=== PATIENT | female | born 1955 | race Caucasian/White ===

== ENCOUNTER 2018-04-30 21:35 | Inpatient (IN) ==
[2018-04-30 23:30] LABS: Basophils % 0.3 % (0.0-0.8); Hematocrit 34.9 VOL% (35.7-47.0); Hemoglobin 11.2 GM/DL (12.0-16.0); Immature Granulocytes % 0.4 %; Immature Granulocytes Absolute 0.04 #; Lymphocytes # 1.1 10*3/uL (1.4-4.0); Lymphocytes % 11.3 % (21.3-54.2); Mean Corpuscular HGB Conc 32.1 GM/DL (32-36); Mean Corpuscular Hemoglobin 32 PG (27-34); Monocytes # 1.2 10*3/uL (0.11-0.8); Neutrophils # 7.4 10*3/uL (1.4-7.4); Platelet Count 224 T/CUMM (130-400); Red Blood Count 3.56 MC/CUMM (3.8-5.5); Red Cell Distribution Width 13.5 % (9.3-17.3); White Blood Count 9.8 T/CUMM (4-12)
[2018-04-30 23:39] LABS: Alanine Aminotransferase 28 U/L (13-56); Albumin 3.1 G/DL (3.4-5.0); Alkaline Phosphatase 65 U/L (45-117); Aspartate Amino Transferase 27 U/L (0-37); Bilirubin,Total < 0.39 MG/DL (0.2-1.0); Blood Urea Nitrogen 25 MG/DL (7-18); Calcium 8.8 MG/DL (8.5-10.1); Glucose 122 MG/DL (74-106); Osmolality,Calculated 285.3 MOS/KG (273-304); Potassium 4.4 MMOL/L (3.5-5.1); Sodium 141 MMOL/L (136-145); Total Protein 6.7 G/DL (6.4-8.3)
[2018-04-30 23:42] LABS: INR 0.9; Partial Thromboplastin Time 27.6 SECS (0-40)
[2018-05-01] MEDS ORDERED: ONDANSETRON 4 MG/2 ML VIAL IV PRN ×2 (00:12→11:15)
[2018-05-01] MEDS ORDERED: MORPHINE 4 MG/1 ML VIAL IV PRN ×3 (00:12→10:59)
[2018-05-01] MEDS: PRAVASTATIN 20 MG TABLET PO SCH ×2 (03:46→20:15)
[2018-05-01] MEDS: SODIUM CHLORIDE 0.9% 1,000 ML IV SCH ×2 (04:00→20:15)
[2018-05-01] MEDS ORDERED: HYDROCORTISONE 100 MG VIAL IV ONE (05:00)
[2018-05-01] MEDS ORDERED: Mirabegron [Myrbetriq] 50 MG PO SCH (09:00)
[2018-05-01 09:06] LABS: Basophils % 0.2 % (0.0-0.8); Eosinophils % 0.1 % (0.00-10.9); Hematocrit 32.3 VOL% (35.7-47.0); Hemoglobin 10.2 GM/DL (12.0-16.0); Immature Granulocytes % 0.7 %; Immature Granulocytes Absolute 0.06 #; Lymphocytes # 1.1 10*3/uL (1.4-4.0); Mean Corpuscular HGB Conc 31.6 GM/DL (32-36); Mean Corpuscular Hemoglobin 31 PG (27-34); Mean Corpuscular Volume 98.5 FL (87-102); Mean Platelet Volume 10.2 FL (9.6-12.0); Monocytes # 0.8 10*3/uL (0.11-0.8); Monocytes % 8.6 % (1.7-12.7); Neutrophils % 78.4 % (38.7-73.9); Platelet Count 208 T/CUMM (130-400); Red Blood Count 3.28 MC/CUMM (3.8-5.5); Red Cell Distribution Width 13.7 % (9.3-17.3); White Blood Count 8.9 T/CUMM (4-12)
[2018-05-01 09:13] LABS: INR 0.9; Partial Thromboplastin Time 27.3 SECS (0-40)
[2018-05-01] MEDS ORDERED: ceFAZolin 2,000 MG in PREMIX 1 EACH IV ONE (09:14)
[2018-05-01 09:43] LABS: Calcium 8.4 MG/DL (8.5-10.1); Osmolality,Calculated 285.3 MOS/KG (273-304); Potassium 4.3 MMOL/L (3.5-5.1)
[2018-05-01] MEDS ORDERED: HYDROCORTISONE 100 MG VIAL ONE (10:28)
[2018-05-01] MEDS ORDERED: BUPIVACAINE SPINAL 0.75% 2 ML AMP SPINAL ONE (10:30)
[2018-05-01] MEDS ORDERED: LIDOCAINE 1% 5 ML VIAL ONE (10:30)
[2018-05-01] MEDS ORDERED: PROPOFOL 200 MG/20 ML VIAL IV ONE (10:30)
[2018-05-01] MEDS ORDERED: LACTATED RINGERS 1,000 ML IV ONE (10:31)
[2018-05-01] MEDS ORDERED: SODIUM CHLORIDE 0.9% 250 ML IV ONE (10:31)
[2018-05-01] MEDS ORDERED: MORPHINE 10 MG/10 ML VIAL ONE (10:36)
[2018-05-01] MEDS ORDERED: ceFAZolin 1,000 MG VIAL ONE ×2 (10:38→11:01)
[2018-05-01] MEDS ORDERED: BISACODYL 10 MG SUPP RECTAL PRN (10:39)
[2018-05-01] MEDS ORDERED: MAGNESIUM HYDROXIDE SUSP 30 ML UDCUP PO PRN (10:39)
[2018-05-01] MEDS ORDERED: PROMETHAZINE 25 MG/1 ML VIAL IM PRN (10:39)
[2018-05-01] MEDS ORDERED: LACTULOSE 20 GM/30 ML UDCUP PO PRN (10:39)
[2018-05-01] MEDS ORDERED: MORPHINE 10 MG/1 ML VIAL IV PRN (11:15)
[2018-05-01] MEDS ORDERED: PHENYLEPHRINE 1 MG/10 ML SYRINGE IV ONE (12:06)
[2018-05-01] MEDS: BACLOFEN 10 MG TABLET PO SCH ×4 (13:22→20:15)
[2018-05-01] MEDS: HYDROCORTISONE 100 MG VIAL IV SCH ×2 (13:42→20:16)
[2018-05-01] MEDS: predniSONE 10 MG TABLET PO SCH (14:00)
[2018-05-01] MEDS: OMEGA 3 ACID ETHYL ESTERS 1 GM CAPSULE PO SCH (15:01)
[2018-05-01] MEDS: SERTRALINE 50 MG TABLET PO SCH (15:01)
[2018-05-01] MEDS: GABAPENTIN 300 MG CAPSULE PO SCH ×3 (15:02→20:15)
[2018-05-01] MEDS: MULTIVITAMIN (CENTRUM) TABLET PO SCH (15:02)
[2018-05-01] MEDS: ceFAZolin 1,000 MG in SYRINGE 1 EACH IV SCH (17:37)
[2018-05-01] MEDS: BACLOFEN 20 MG TABLET PO SCH (20:15)
[2018-05-02] MEDS: ceFAZolin 1,000 MG in SYRINGE 1 EACH IV SCH ×2 (01:25→11:46)
[2018-05-02 04:12] LABS: Basophils % 0.1 % (0.0-0.8); Hematocrit 24.1 VOL% (35.7-47.0); Hemoglobin 7.5 GM/DL (12.0-16.0); Immature Granulocytes % 0.7 %; Immature Granulocytes Absolute 0.05 #; Lymphocytes % 12.8 % (21.3-54.2); Mean Corpuscular HGB Conc 31.1 GM/DL (32-36); Mean Corpuscular Hemoglobin 31 PG (27-34); Mean Corpuscular Volume 100.4 FL (87-102); Monocytes # 1.2 10*3/uL (0.11-0.8); Monocytes % 15.7 % (1.7-12.7); Neutrophils # 5.3 10*3/uL (1.4-7.4); Neutrophils % 70.7 % (38.7-73.9); Platelet Count 169 T/CUMM (130-400); Red Cell Distribution Width 13.5 % (9.3-17.3); White Blood Count 7.5 T/CUMM (4-12)
[2018-05-02 04:59] LABS: Band Neutrophils 6 % (0-10); Lymphocytes 14 % (20-55); Macrocytosis 3+; Platelet Estimate Normal; Segmented Neutrophils 71 % (50-85); Total Cells Counted 100
[2018-05-02] MEDS: HYDROCORTISONE 100 MG VIAL IV SCH ×2 (06:32→13:01)
[2018-05-02] MEDS ORDERED: SODIUM CHLORIDE 0.9% 1,000 ML IV PRN (09:21)
[2018-05-02] MEDS: BACLOFEN 10 MG TABLET PO SCH ×4 (11:48→20:30)
[2018-05-02] MEDS: OMEGA 3 ACID ETHYL ESTERS 1 GM CAPSULE PO SCH (11:48)
[2018-05-02] MEDS: GABAPENTIN 300 MG CAPSULE PO SCH ×3 (11:48→20:29)
[2018-05-02] MEDS: MULTIVITAMIN (CENTRUM) TABLET PO SCH (11:48)
[2018-05-02] MEDS: predniSONE 10 MG TABLET PO SCH (11:48)
[2018-05-02] MEDS: SERTRALINE 50 MG TABLET PO SCH (11:49)
[2018-05-02] MEDS: ENOXAPARIN 40 MG/0.4 ML SYRINGE SUBCUT SCH (11:54)
[2018-05-02] MEDS: BACLOFEN 20 MG TABLET PO SCH (20:29)
[2018-05-02] MEDS: PRAVASTATIN 20 MG TABLET PO SCH (20:29)
[2018-05-02] MEDS: SODIUM CHLORIDE 0.9% 1,000 ML IV SCH (20:29)
[2018-05-02 23:21] LABS: Hematocrit 30.4 VOL% (35.7-47.0); Hemoglobin 10.4 GM/DL (12.0-16.0)
[2018-05-03 05:43] LABS: Basophils % 0.4 % (0.0-0.8); Eosinophils % 0.4 % (0.00-10.9); Hematocrit 30.3 VOL% (35.7-47.0); Hemoglobin 10.2 GM/DL (12.0-16.0); Immature Granulocytes % 1.3 %; Immature Granulocytes Absolute 0.11 #; Lymphocytes % 23.9 % (21.3-54.2); Mean Corpuscular HGB Conc 33.7 GM/DL (32-36); Mean Corpuscular Hemoglobin 31 PG (27-34); Mean Corpuscular Volume 93.2 FL (87-102); Mean Platelet Volume 9.9 FL (9.6-12.0); Monocytes # 1.3 10*3/uL (0.11-0.8); Monocytes % 15.1 % (1.7-12.7); Neutrophils # 4.9 10*3/uL (1.4-7.4); Neutrophils % 58.9 % (38.7-73.9); Platelet Count 170 T/CUMM (130-400); Red Blood Count 3.25 MC/CUMM (3.8-5.5); Red Cell Distribution Width 14.7 % (9.3-17.3); White Blood Count 8.3 T/CUMM (4-12)
[2018-05-03 06:19] LABS: Calcium 7.6 MG/DL (8.5-10.1); Osmolality,Calculated 289.6 MOS/KG (273-304); Potassium 3.1 MMOL/L (3.5-5.1)
[2018-05-03] MEDS ORDERED: POTASSIUM CHLORIDE 20 MEQ TABLET PO ONE (07:35)
[2018-05-03] MEDS: SERTRALINE 50 MG TABLET PO SCH (09:44)
[2018-05-03] MEDS: MULTIVITAMIN (CENTRUM) TABLET PO SCH (09:44)
[2018-05-03] MEDS: BACLOFEN 10 MG TABLET PO SCH ×4 (09:44→21:10)
[2018-05-03] MEDS: predniSONE 10 MG TABLET PO SCH (09:44)
[2018-05-03] MEDS: GABAPENTIN 300 MG CAPSULE PO SCH ×3 (09:45→21:10)
[2018-05-03] MEDS: ENOXAPARIN 40 MG/0.4 ML SYRINGE SUBCUT SCH (09:45)
[2018-05-03] MEDS: OMEGA 3 ACID ETHYL ESTERS 1 GM CAPSULE PO SCH (09:45)
[2018-05-03] MEDS: Mirabegron [Myrbetriq] 50 MG PO SCH (11:06)
[2018-05-03] MEDS: PRAVASTATIN 20 MG TABLET PO SCH (21:10)
[2018-05-03] MEDS: BACLOFEN 20 MG TABLET PO SCH (21:10)
[2018-05-03] MEDS: FERROUS SULFATE 325 MG TABLET PO SCH (21:10)
[2018-05-04 06:41] LABS: Basophils # 0.1 10*3/uL (0.0-0.2); Basophils % 0.7 % (0.0-0.8); Eosinophils # 0.2 10*3/uL (0.0-0.87); Eosinophils % 2.2 % (0.00-10.9); Hematocrit 29.7 VOL% (35.7-47.0); Hemoglobin 9.8 GM/DL (12.0-16.0); Immature Granulocytes % 1.1 %; Immature Granulocytes Absolute 0.08 #; Lymphocytes # 1.9 10*3/uL (1.4-4.0); Lymphocytes % 26.6 % (21.3-54.2); Mean Corpuscular Hemoglobin 31 PG (27-34); Mean Corpuscular Volume 95.2 FL (87-102); Mean Platelet Volume 9.8 FL (9.6-12.0); Monocytes # 0.9 10*3/uL (0.11-0.8); Monocytes % 12.6 % (1.7-12.7); Neutrophils # 4.1 10*3/uL (1.4-7.4); Neutrophils % 56.8 % (38.7-73.9); Platelet Count 176 T/CUMM (130-400); Red Blood Count 3.12 MC/CUMM (3.8-5.5); Red Cell Distribution Width 14.8 % (9.3-17.3); White Blood Count 7.1 T/CUMM (4-12)
[2018-05-04 06:57] LABS: Calcium 7.6 MG/DL (8.5-10.1); Osmolality,Calculated 284.7 MOS/KG (273-304); Potassium 3.1 MMOL/L (3.5-5.1)
[2018-05-04] MEDS: OMEGA 3 ACID ETHYL ESTERS 1 GM CAPSULE PO SCH (08:25)
[2018-05-04] MEDS: GABAPENTIN 300 MG CAPSULE PO SCH (08:25)
[2018-05-04] MEDS: BACLOFEN 10 MG TABLET PO SCH ×2 (08:25→13:01)
[2018-05-04] MEDS: SERTRALINE 50 MG TABLET PO SCH (08:25)
[2018-05-04] MEDS: FERROUS SULFATE 325 MG TABLET PO SCH (08:25)
[2018-05-04] MEDS: MULTIVITAMIN (CENTRUM) TABLET PO SCH (08:25)
[2018-05-04] MEDS: predniSONE 10 MG TABLET PO SCH (08:25)
[2018-05-04] MEDS: Mirabegron [Myrbetriq] 50 MG PO SCH (08:25)
[2018-05-04] MEDS: ENOXAPARIN 40 MG/0.4 ML SYRINGE SUBCUT SCH (08:27)
[2018-05-04] MEDS ORDERED: POTASSIUM CHLORIDE 20 MEQ TABLET PO ONE (09:02)
[2018-05-04 11:19] VITALS: BP 94/50
[2018-05-12] MEDS ORDERED: CYANOCOBALAMIN 1000 MCG/1 ML VIAL IM SCH (09:00)
== END 2018-05-04 13:03 | disposition home health service (06) | DRG 481 ==
LOC: EDBD → EDUNIT# → N.ED 21:35 → N.EDINP 05-01 00:07 → N.3E 05-01 01:26

== ENCOUNTER 2018-12-24 02:24 | Inpatient (IN) ==
[2018-12-24] MEDS ORDERED: ONDANSETRON 4 MG/2 ML VIAL IV PRN (02:59)
[2018-12-24] MEDS: DEXTROSE 5% NACL 0.45% 1,000 ML IV SCH ×2 (03:15→14:51)
[2018-12-24 03:43] LABS: Basophils % 0.4 % (0.0-0.8); Eosinophils # 0.1 10*3/uL (0.0-0.87); Hematocrit 33.8 VOL% (35.7-47.0); Hemoglobin 10.4 GM/DL (12.0-16.0); Immature Granulocytes % 0.7 %; Immature Granulocytes Absolute 0.06 #; Lymphocytes # 2.2 10*3/uL (1.4-4.0); Lymphocytes % 23.6 % (21.3-54.2); Mean Corpuscular HGB Conc 30.8 GM/DL (32-36); Mean Corpuscular Hemoglobin 31 PG (27-34); Mean Corpuscular Volume 101.8 FL (87-102); Mean Platelet Volume 9.9 FL (9.6-12.0); Monocytes # 1.2 10*3/uL (0.11-0.8); Monocytes % 13.2 % (1.7-12.7); Neutrophils # 5.6 10*3/uL (1.4-7.4); Neutrophils % 61.1 % (38.7-73.9); Platelet Count 209 T/CUMM (130-400); Red Blood Count 3.32 MC/CUMM (3.8-5.5); White Blood Count 9.2 T/CUMM (4-12)
[2018-12-24 04:00] LABS: Alanine Aminotransferase 20 U/L (13-56); Albumin 3.1 G/DL (3.4-5.0); Alkaline Phosphatase 58 U/L (45-117); Aspartate Amino Transferase 16 U/L (0-37); Bilirubin,Total < 0.39 MG/DL (0.2-1.0); Blood Urea Nitrogen 29 MG/DL (7-18); Calcium 8.2 MG/DL (8.5-10.1); Glucose 103 MG/DL (74-106); Potassium 4.2 MMOL/L (3.5-5.1); Sodium 143 MMOL/L (136-145); Total Protein 6.1 G/DL (6.4-8.3)
[2018-12-24] MEDS: predniSONE 10 MG TABLET PO SCH (10:46)
[2018-12-24] MEDS: SERTRALINE 100 MG TABLET PO SCH (10:46)
[2018-12-24] MEDS: busPIRone 5 MG TABLET PO SCH ×2 (10:46→22:03)
[2018-12-24] MEDS: FERROUS SULFATE 325 MG TABLET PO SCH ×2 (10:47→22:02)
[2018-12-24] MEDS: BACLOFEN 10 MG TABLET PO SCH ×3 (12:54→22:04)
[2018-12-24] MEDS: GABAPENTIN 300 MG CAPSULE PO SCH ×2 (16:18→22:04)
[2018-12-24] MEDS: BACLOFEN 20 MG TABLET PO SCH (22:02)
[2018-12-24] MEDS: CALCIUM (CARBONATE)/VITAMIN D 600 MG-400 UNIT TABLET PO SCH (22:03)
[2018-12-25] MEDS: DEXTROSE 5% NACL 0.45% 1,000 ML IV SCH ×2 (01:14→12:54)
[2018-12-25] MEDS: MORPHINE 4 MG/1 ML VIAL IV PRN (05:50)
[2018-12-25] MEDS ORDERED: PANTOPRAZOLE 40 MG TABLET PO ONE (07:00)
[2018-12-25] MEDS ORDERED: DIAZEPAM 5 MG TABLET PO ONE (07:00)
[2018-12-25 07:34] LABS: Calcium 7.6 MG/DL (8.5-10.1); Osmolality,Calculated 283.1 MOS/KG (273-304); Potassium 3.4 MMOL/L (3.5-5.1)
[2018-12-25] MEDS: BACLOFEN 10 MG TABLET PO SCH ×4 (09:00→21:17)
[2018-12-25] MEDS: GABAPENTIN 300 MG CAPSULE PO SCH ×3 (09:00→21:16)
[2018-12-25] MEDS ORDERED: ceFAZolin 1,000 MG VIAL ONE (09:24)
[2018-12-25 09:26] LABS: Basophils % 0.4 % (0.0-0.8); Eosinophils # 0.1 10*3/uL (0.0-0.87); Eosinophils % 1.4 % (0.00-10.9); Hematocrit 26.4 VOL% (35.7-47.0); Immature Granulocytes % 0.5 %; Immature Granulocytes Absolute 0.04 #; Lymphocytes # 1.7 10*3/uL (1.4-4.0); Lymphocytes % 23.3 % (21.3-54.2); Mean Corpuscular HGB Conc 30.3 GM/DL (32-36); Mean Corpuscular Hemoglobin 31 PG (27-34); Mean Corpuscular Volume 103.5 FL (87-102); Mean Platelet Volume 10.4 FL (9.6-12.0); Monocytes # 1.3 10*3/uL (0.11-0.8); Monocytes % 17.3 % (1.7-12.7); Neutrophils # 4.2 10*3/uL (1.4-7.4); Neutrophils % 57.1 % (38.7-73.9); Platelet Count 146 T/CUMM (130-400); Red Blood Count 2.55 MC/CUMM (3.8-5.5); Red Cell Distribution Width 13.2 % (9.3-17.3); White Blood Count 7.3 T/CUMM (4-12)
[2018-12-25] MEDS ORDERED: ONDANSETRON 4 MG/2 ML VIAL IV PRN (11:03)
[2018-12-25] MEDS ORDERED: MEPERIDINE 25 MG/1 ML VIAL IV PRN (11:03)
[2018-12-25] MEDS ORDERED: PROMETHAZINE INJ 25 MG in SODIUM CHLORIDE 0.9% 50 ML IV PRN (11:03)
[2018-12-25] MEDS ORDERED: HYDROmorphone 2 MG/1 ML VIAL IV PRN (11:03)
[2018-12-25] MEDS ORDERED: PROPOFOL 200 MG/20 ML VIAL IV ONE (12:11)
[2018-12-25] MEDS ORDERED: PHENYLEPHRINE 1 MG/10 ML SYRINGE IV ONE (12:11)
[2018-12-25] MEDS ORDERED: fentaNYL 100 MCG/2 ML VIAL ONE (12:11)
[2018-12-25] MEDS ORDERED: MIDAZOLAM 2 MG/2 ML VIAL ONE (12:11)
[2018-12-25] MEDS ORDERED: HYDROCORTISONE 100 MG VIAL IV STA (12:37)
[2018-12-25 13:35] LABS: Eosinophils 2 % (0-10); Lymphocytes 31 % (20-55); Platelet Estimate Adequate; Polychromasia Slight; Segmented Neutrophils 59 % (50-85); Total Cells Counted 100
[2018-12-25] MEDS: busPIRone 5 MG TABLET PO SCH ×3 (15:16→21:18)
[2018-12-25] MEDS: CALCIUM (CARBONATE)/VITAMIN D 600 MG-400 UNIT TABLET PO SCH ×2 (15:16→21:16)
[2018-12-25] MEDS: FERROUS SULFATE 325 MG TABLET PO SCH ×2 (15:17→21:16)
[2018-12-25] MEDS: SERTRALINE 100 MG TABLET PO SCH (15:17)
[2018-12-25] MEDS: predniSONE 10 MG TABLET PO SCH (15:18)
[2018-12-25] MEDS ORDERED: ceFAZolin 1,000 MG in SYRINGE 1 EACH IV SCH (18:00)
[2018-12-25] MEDS: ENOXAPARIN 40 MG/0.4 ML SYRINGE SUBCUT SCH (21:15)
[2018-12-25] MEDS: BACLOFEN 20 MG TABLET PO SCH (21:16)
[2018-12-25] MEDS ORDERED: POTASSIUM CHLORIDE 20 MEQ TABLET PO PRN (22:13)
[2018-12-25] MEDS ORDERED: SODIUM CHLORIDE 0.9% 1,000 ML IV PRN (22:14)
[2018-12-25] MEDS: SIMVASTATIN 10 MG TABLET PO SCH (22:57)
[2018-12-26] MEDS: ACETAMINOPHEN 500 MG TABLET PO PRN ×2 (00:09→15:32)
[2018-12-26] MEDS: DEXTROSE 5% NACL 0.45% 1,000 ML IV SCH ×3 (00:11→14:20)
[2018-12-26] MEDS: MORPHINE 4 MG/1 ML VIAL IV PRN (06:25)
[2018-12-26 09:49] LABS: Basophils % 0.3 % (0.0-0.8); Eosinophils # 0.1 10*3/uL (0.0-0.87); Eosinophils % 1.4 % (0.00-10.9); Hematocrit 28.2 VOL% (35.7-47.0); Hemoglobin 8.8 GM/DL (12.0-16.0); Immature Granulocytes % 0.6 %; Immature Granulocytes Absolute 0.05 #; Lymphocytes # 1.8 10*3/uL (1.4-4.0); Lymphocytes % 22.9 % (21.3-54.2); Mean Corpuscular HGB Conc 31.2 GM/DL (32-36); Mean Corpuscular Hemoglobin 29 PG (27-34); Mean Corpuscular Volume 93.7 FL (87-102); Mean Platelet Volume 9.6 FL (9.6-12.0); Monocytes # 1.1 10*3/uL (0.11-0.8); Monocytes % 13.7 % (1.7-12.7); Neutrophils # 4.9 10*3/uL (1.4-7.4); Neutrophils % 61.1 % (38.7-73.9); Platelet Count 127 T/CUMM (130-400); Red Blood Count 3.01 MC/CUMM (3.8-5.5); Red Cell Distribution Width 18.6 % (9.3-17.3)
[2018-12-26] MEDS: FERROUS SULFATE 325 MG TABLET PO SCH ×2 (09:54→21:13)
[2018-12-26] MEDS: CALCIUM (CARBONATE)/VITAMIN D 600 MG-400 UNIT TABLET PO SCH ×2 (09:54→21:13)
[2018-12-26] MEDS: BACLOFEN 10 MG TABLET PO SCH ×4 (09:54→21:12)
[2018-12-26] MEDS: GABAPENTIN 300 MG CAPSULE PO SCH ×3 (09:55→21:13)
[2018-12-26] MEDS: predniSONE 10 MG TABLET PO SCH (09:55)
[2018-12-26] MEDS: CHOLECALCIFEROL 1,000 UNIT TABLET PO SCH (09:55)
[2018-12-26] MEDS: SERTRALINE 100 MG TABLET PO SCH (09:55)
[2018-12-26] MEDS: busPIRone 5 MG TABLET PO SCH ×2 (10:23→21:19)
[2018-12-26] MEDS: ALBUTEROL/IPRATROPIUM 3 ML NEB RESP TX SCH ×2 (13:58→19:49)
[2018-12-26] MEDS: ZINC OXIDE PASTE 113 GM TUBE TOP SCH ×2 (14:25→21:10)
[2018-12-26] MEDS: ASPIRIN EC 81 MG TABLET PO SCH (15:28)
[2018-12-26 18:39] LABS: Apearance,Urine CLEAR (Clear); Bilirubin,Urine Negative (Negative); Blood, Urine Negative (Negative); Glucose,Urine (UA) 50 mg/dL (Negative); Ketones,Urine Negative (Negative); Nitrite,Urine Negative (Negative); Protein,Urine Negative; Urine Color Straw (Yellow); Urine Specific Gravity 1.006 (1.001-1.035); Urine Urobilinogen < 2.0 EU/DL (0.2-1.0)
[2018-12-26 18:53] LABS: Bacteria,Urine Few /HPF (Few); RBC,Urine F /HPF (0-4); Squamous Epithelial Cell,Urine Few /HPF (0-10); WBC,Urine 15 /HPF (0-6)
[2018-12-26] MEDS: BACLOFEN 20 MG TABLET PO SCH (21:12)
[2018-12-26] MEDS: SIMVASTATIN 10 MG TABLET PO SCH (21:13)
[2018-12-26] MEDS: ENOXAPARIN 40 MG/0.4 ML SYRINGE SUBCUT SCH (21:14)
[2018-12-27] MEDS: ALBUTEROL/IPRATROPIUM 3 ML NEB RESP TX SCH ×2 (00:31→07:14)
[2018-12-27] MEDS: DEXTROSE 5% NACL 0.45% 1,000 ML IV SCH ×2 (01:43→11:00)
[2018-12-27 05:52] LABS: Basophils % 0.4 % (0.0-0.8); Eosinophils # 0.1 10*3/uL (0.0-0.87); Eosinophils % 1.6 % (0.00-10.9); Immature Granulocytes % 0.6 %; Immature Granulocytes Absolute 0.05 #; Lymphocytes # 1.9 10*3/uL (1.4-4.0); Lymphocytes % 23.2 % (21.3-54.2); Mean Corpuscular Hemoglobin 29 PG (27-34); Mean Corpuscular Volume 93.9 FL (87-102); Mean Platelet Volume 9.9 FL (9.6-12.0); Neutrophils # 4.9 10*3/uL (1.4-7.4); Neutrophils % 61.2 % (38.7-73.9); Platelet Count 151 T/CUMM (130-400); Red Blood Count 3.09 MC/CUMM (3.8-5.5); Red Cell Distribution Width 18.6 % (9.3-17.3)
[2018-12-27 06:07] LABS: Calcium 8.3 MG/DL (8.5-10.1); Osmolality,Calculated 280.1 MOS/KG (273-304); Potassium 3.2 MMOL/L (3.5-5.1)
[2018-12-27] MEDS: ZINC OXIDE PASTE 113 GM TUBE TOP SCH ×2 (07:15→08:38)
[2018-12-27] MEDS: CALCIUM (CARBONATE)/VITAMIN D 600 MG-400 UNIT TABLET PO SCH (08:36)
[2018-12-27] MEDS: BACLOFEN 10 MG TABLET PO SCH (08:36)
[2018-12-27] MEDS: ASPIRIN EC 81 MG TABLET PO SCH (08:36)
[2018-12-27] MEDS: FERROUS SULFATE 325 MG TABLET PO SCH (08:36)
[2018-12-27] MEDS: predniSONE 10 MG TABLET PO SCH (08:37)
[2018-12-27] MEDS: SERTRALINE 100 MG TABLET PO SCH (08:37)
[2018-12-27] MEDS: CHOLECALCIFEROL 1,000 UNIT TABLET PO SCH (08:37)
[2018-12-27] MEDS: GABAPENTIN 300 MG CAPSULE PO SCH (08:37)
[2018-12-27] MEDS: busPIRone 5 MG TABLET PO SCH (08:37)
[2018-12-27 11:33] VITALS: BP 138/69
== END 2018-12-27 13:15 | disposition home health service (06) | DRG 481 ==
LOC: EDUNIT# → N.ED 02:24 → N.EDINP 02:59 → N.3E 03:59
PROVIDERS: ADMIT Orthopaedic Surgery; ATTEND Orthopaedic Surgery

== ENCOUNTER 2018-12-28 16:37 | Inpatient (IN) ==
[2018-12-28] MEDS ORDERED: ONDANSETRON 4 MG/2 ML VIAL IV STA (17:02)
[2018-12-28] MEDS ORDERED: ALBUTEROL/IPRATROPIUM 3 ML NEB RESP TX STA (17:02)
[2018-12-28 17:45] LABS: Basophils % 0.2 % (0.0-0.8); Eosinophils % 0.1 % (0.00-10.9); Hematocrit 31.1 VOL% (35.7-47.0); Hemoglobin 9.8 GM/DL (12.0-16.0); Immature Granulocytes % 1.1 %; Lymphocytes # 0.7 10*3/uL (1.4-4.0); Lymphocytes % 7.4 % (21.3-54.2); Mean Corpuscular HGB Conc 31.5 GM/DL (32-36); Mean Corpuscular Hemoglobin 30 PG (27-34); Mean Corpuscular Volume 93.7 FL (87-102); Mean Platelet Volume 9.5 FL (9.6-12.0); Monocytes # 0.9 10*3/uL (0.11-0.8); Monocytes % 9.7 % (1.7-12.7); NRBC # 0.02 10*3/uL; Neutrophils # 7.8 10*3/uL (1.4-7.4); Neutrophils % 81.5 % (38.7-73.9); Platelet Count 224 T/CUMM (130-400); Red Blood Count 3.32 MC/CUMM (3.8-5.5); Red Cell Distribution Width 17.5 % (9.3-17.3); White Blood Count 9.5 T/CUMM (4-12)
[2018-12-28 18:02] LABS: INR 0.9; Partial Thromboplastin Time 28.2 SECS (0-40)
[2018-12-28 18:13] LABS: Alanine Aminotransferase 21 U/L (13-56); Albumin 2.4 G/DL (3.4-5.0); Alkaline Phosphatase 73 U/L (45-117); Aspartate Amino Transferase 75 U/L (0-37); Blood Urea Nitrogen 11 MG/DL (7-18); Calcium 8.1 MG/DL (8.5-10.1); Glucose 102 MG/DL (74-106); Osmolality,Calculated 279.3 MOS/KG (273-304); Potassium 3.7 MMOL/L (3.5-5.1); Sodium 141 MMOL/L (136-145); Total Protein 6.3 G/DL (6.4-8.3)
[2018-12-28 18:14] LABS: Troponin I 0.164 NG/ML (0.00-0.045)
[2018-12-28 18:19] LABS: Apearance,Urine CLEAR (Clear); Bilirubin,Urine Negative (Negative); Blood, Urine Negative (Negative); Glucose,Urine (UA) Negative (Negative); Ketones,Urine 5 mg/dL (Negative); Mucus,Urine Occasional /LPF (Occasional); Nitrite,Urine Negative (Negative); Protein,Urine Negative; RBC,Urine 4 /HPF (0-4); Squamous Epithelial Cell,Urine Occasional /HPF (0-10); Urine Color Yellow (Yellow); Urine Specific Gravity 1.023 (1.001-1.035); Urine Urobilinogen < 2.0 EU/DL (0.2-1.0); WBC,Urine 32 /HPF (0-6)
[2018-12-28] MEDS ORDERED: ENOXAPARIN 80 MG/0.8 ML SYRINGE SUBCUT STA (18:52)
[2018-12-28] MEDS ORDERED: ONDANSETRON 4 MG/2 ML VIAL IV PRN (19:23)
[2018-12-28] MEDS ORDERED: hydrALAZINE 20 MG/1 ML VIAL IV PRN (20:21)
[2018-12-28] MEDS: LEVOFLOXACIN INJ 750 MG in PREMIX 1 EACH IV SCH (20:28)
[2018-12-28] MEDS ORDERED: BACLOFEN 20 MG TABLET PO SCH (21:00)
[2018-12-28] MEDS: POTASSIUM CHLORIDE 8 MEQ CAPSULE PO SCH (21:18)
[2018-12-28] MEDS: SIMVASTATIN 10 MG TABLET PO SCH (21:19)
[2018-12-28] MEDS: busPIRone 5 MG TABLET PO SCH (21:20)
[2018-12-29] MEDS ORDERED: BACLOFEN 10 MG TABLET PO ONE (00:12)
[2018-12-29] MEDS: ALBUTEROL/IPRATROPIUM 3 ML NEB RESP TX SCH ×4 (00:19→19:54)
[2018-12-29 04:46] LABS: Basophils % 0.2 % (0.0-0.8); Eosinophils # 0.1 10*3/uL (0.0-0.87); Eosinophils % 1.2 % (0.00-10.9); Hematocrit 27.7 VOL% (35.7-47.0); Hemoglobin 8.5 GM/DL (12.0-16.0); Immature Granulocytes % 1.1 %; Immature Granulocytes Absolute 0.09 #; Lymphocytes # 1.4 10*3/uL (1.4-4.0); Mean Corpuscular HGB Conc 30.7 GM/DL (32-36); Mean Corpuscular Hemoglobin 29 PG (27-34); Mean Corpuscular Volume 94.9 FL (87-102); Mean Platelet Volume 9.7 FL (9.6-12.0); Monocytes # 0.9 10*3/uL (0.11-0.8); Monocytes % 11.2 % (1.7-12.7); NRBC # 0.02 10*3/uL; Neutrophils # 5.7 10*3/uL (1.4-7.4); Neutrophils % 69.3 % (38.7-73.9); Platelet Count 213 T/CUMM (130-400); Red Blood Count 2.92 MC/CUMM (3.8-5.5); Red Cell Distribution Width 17.3 % (9.3-17.3); White Blood Count 8.2 T/CUMM (4-12)
[2018-12-29 05:00] LABS: Calcium 7.7 MG/DL (8.5-10.1); Osmolality,Calculated 280.1 MOS/KG (273-304); Potassium 3.8 MMOL/L (3.5-5.1)
[2018-12-29 05:04] LABS: Albumin 2.2 G/DL (3.4-5.0); Bilirubin,Direct 0.18 MG/DL (0.0-0.20); Bilirubin,Indirect 0.7 MG/DL (0.0-1.0); Bilirubin,Total 0.9 MG/DL (0.2-1.0); Total Protein 5.5 G/DL (6.4-8.3)
[2018-12-29 05:06] LABS: CKMB % 0.7 %
[2018-12-29 05:07] LABS: Troponin I 0.086 NG/ML (0.00-0.045)
[2018-12-29] MEDS: METOPROLOL TARTRATE 5 MG/5 ML VIAL IV SCH ×4 (06:16→18:59)
[2018-12-29] MEDS: ENOXAPARIN 80 MG/0.8 ML SYRINGE SUBCUT SCH ×2 (06:25→18:40)
[2018-12-29] MEDS ORDERED: BACLOFEN 10 MG TABLET PO SCH (09:00)
[2018-12-29] MEDS: SERTRALINE 100 MG TABLET PO SCH (09:59)
[2018-12-29] MEDS: GABAPENTIN 300 MG CAPSULE PO SCH ×3 (09:59→20:40)
[2018-12-29] MEDS: FERROUS SULFATE 325 MG TABLET PO SCH ×2 (09:59→20:40)
[2018-12-29] MEDS: predniSONE 10 MG TABLET PO SCH (09:59)
[2018-12-29] MEDS: CYCLOBENZAPRINE 10 MG TABLET PO PRN ×2 (10:00→20:47)
[2018-12-29] MEDS: POTASSIUM CHLORIDE 8 MEQ CAPSULE PO SCH ×2 (10:00→20:40)
[2018-12-29] MEDS: busPIRone 5 MG TABLET PO SCH ×2 (10:00→21:02)
[2018-12-29] MEDS: PANTOPRAZOLE 40 MG VIAL IV SCH (10:10)
[2018-12-29] MEDS: NON-FORMULARY MEDICATION (Mirabegron [Myrbetriq] 50 MG) PO SCH (13:29)
[2018-12-29] MEDS: LEVOFLOXACIN INJ 750 MG in PREMIX 1 EACH IV SCH (20:39)
[2018-12-29] MEDS: SIMVASTATIN 10 MG TABLET PO SCH (20:40)
[2018-12-29] MEDS: DIAZEPAM 5 MG TABLET PO PRN (20:40)
[2018-12-29] MEDS: MORPHINE 4 MG/1 ML VIAL IV PRN (22:59)
[2018-12-30] MEDS: METOPROLOL TARTRATE 5 MG/5 ML VIAL IV SCH ×4 (00:04→18:01)
[2018-12-30] MEDS: ALBUTEROL/IPRATROPIUM 3 ML NEB RESP TX SCH ×4 (03:10→19:19)
[2018-12-30 03:57] LABS: Basophils % 0.4 % (0.0-0.8); Eosinophils # 0.2 10*3/uL (0.0-0.87); Eosinophils % 2.2 % (0.00-10.9); Hematocrit 29.1 VOL% (35.7-47.0); Hemoglobin 8.8 GM/DL (12.0-16.0); Immature Granulocytes % 1.4 %; Lymphocytes # 1.7 10*3/uL (1.4-4.0); Lymphocytes % 23.4 % (21.3-54.2); Mean Corpuscular HGB Conc 30.2 GM/DL (32-36); Mean Corpuscular Hemoglobin 29 PG (27-34); Mean Corpuscular Volume 96.7 FL (87-102); Mean Platelet Volume 9.5 FL (9.6-12.0); Monocytes # 0.8 10*3/uL (0.11-0.8); Monocytes % 11.1 % (1.7-12.7); Neutrophils # 4.5 10*3/uL (1.4-7.4); Neutrophils % 61.5 % (38.7-73.9); Platelet Count 244 T/CUMM (130-400); Red Blood Count 3.01 MC/CUMM (3.8-5.5); Red Cell Distribution Width 17.5 % (9.3-17.3); White Blood Count 7.3 T/CUMM (4-12)
[2018-12-30 04:17] LABS: Calcium 7.4 MG/DL (8.5-10.1); Osmolality,Calculated 279.3 MOS/KG (273-304)
[2018-12-30] MEDS: ENOXAPARIN 80 MG/0.8 ML SYRINGE SUBCUT SCH (05:50)
[2018-12-30] MEDS: PANTOPRAZOLE 40 MG VIAL IV SCH (08:16)
[2018-12-30] MEDS: busPIRone 5 MG TABLET PO SCH ×3 (08:16→21:29)
[2018-12-30] MEDS: POTASSIUM CHLORIDE 8 MEQ CAPSULE PO SCH ×2 (08:17→21:27)
[2018-12-30] MEDS: CYCLOBENZAPRINE 10 MG TABLET PO PRN ×2 (08:17→18:50)
[2018-12-30] MEDS: GABAPENTIN 300 MG CAPSULE PO SCH ×3 (08:17→21:27)
[2018-12-30] MEDS: APIXABAN 5 MG TABLET PO SCH ×2 (08:17→21:27)
[2018-12-30] MEDS: FERROUS SULFATE 325 MG TABLET PO SCH ×2 (08:17→21:27)
[2018-12-30] MEDS: SERTRALINE 100 MG TABLET PO SCH (08:18)
[2018-12-30] MEDS: NON-FORMULARY MEDICATION (Mirabegron [Myrbetriq] 50 MG) PO SCH (08:18)
[2018-12-30] MEDS: predniSONE 10 MG TABLET PO SCH (08:18)
[2018-12-30] MEDS: CALCIUM (CARBONATE)/VITAMIN D 600 MG-400 UNIT TABLET PO SCH ×2 (11:46→21:27)
[2018-12-30] MEDS: CHOLECALCIFEROL 1,000 UNIT TABLET PO SCH (11:46)
[2018-12-30] MEDS ORDERED: ACETAMINOPHEN 325 MG TABLET PO PRN (19:52)
[2018-12-30] MEDS: DIAZEPAM 5 MG TABLET PO PRN (21:26)
[2018-12-30] MEDS: SIMVASTATIN 10 MG TABLET PO SCH (21:27)
[2018-12-30] MEDS: LEVOFLOXACIN INJ 750 MG in PREMIX 1 EACH IV SCH (21:28)
[2018-12-30] MEDS: MORPHINE 4 MG/1 ML VIAL IV PRN (22:49)
[2018-12-31] MEDS: ALBUTEROL/IPRATROPIUM 3 ML NEB RESP TX SCH ×4 (00:16→20:01)
[2018-12-31] MEDS: METOPROLOL TARTRATE 5 MG/5 ML VIAL IV SCH ×5 (00:55→23:59)
[2018-12-31 06:40] LABS: Basophils % 0.4 % (0.0-0.8); Eosinophils # 0.2 10*3/uL (0.0-0.87); Eosinophils % 2.4 % (0.00-10.9); Hematocrit 29.8 VOL% (35.7-47.0); Hemoglobin 8.9 GM/DL (12.0-16.0); Immature Granulocytes % 2.1 %; Immature Granulocytes Absolute 0.14 #; Lymphocytes # 1.5 10*3/uL (1.4-4.0); Lymphocytes % 21.8 % (21.3-54.2); Mean Corpuscular HGB Conc 29.9 GM/DL (32-36); Mean Corpuscular Hemoglobin 29 PG (27-34); Mean Platelet Volume 9.3 FL (9.6-12.0); Monocytes # 0.8 10*3/uL (0.11-0.8); NRBC # 0.02 10*3/uL; Neutrophils # 4.2 10*3/uL (1.4-7.4); Neutrophils % 62.3 % (38.7-73.9); Platelet Count 286 T/CUMM (130-400); Red Blood Count 3.04 MC/CUMM (3.8-5.5); Red Cell Distribution Width 17.5 % (9.3-17.3); White Blood Count 6.8 T/CUMM (4-12)
[2018-12-31 06:53] LABS: Calcium 7.9 MG/DL (8.5-10.1); Potassium 3.9 MMOL/L (3.5-5.1)
[2018-12-31] MEDS: CALCIUM (CARBONATE)/VITAMIN D 600 MG-400 UNIT TABLET PO SCH ×2 (08:51→21:34)
[2018-12-31] MEDS: POTASSIUM CHLORIDE 8 MEQ CAPSULE PO SCH ×2 (08:52→21:36)
[2018-12-31] MEDS: FERROUS SULFATE 325 MG TABLET PO SCH ×2 (08:52→21:34)
[2018-12-31] MEDS: APIXABAN 5 MG TABLET PO SCH ×2 (08:52→21:35)
[2018-12-31] MEDS: busPIRone 5 MG TABLET PO SCH ×2 (08:53→21:36)
[2018-12-31] MEDS: NON-FORMULARY MEDICATION (Mirabegron [Myrbetriq] 50 MG) PO SCH (08:55)
[2018-12-31] MEDS: predniSONE 10 MG TABLET PO SCH (08:57)
[2018-12-31] MEDS: GABAPENTIN 300 MG CAPSULE PO SCH ×3 (08:57→21:34)
[2018-12-31] MEDS: CHOLECALCIFEROL 1,000 UNIT TABLET PO SCH (10:25)
[2018-12-31] MEDS: PANTOPRAZOLE 40 MG VIAL IV SCH (10:25)
[2018-12-31] MEDS: SERTRALINE 100 MG TABLET PO SCH (10:36)
[2018-12-31] MEDS: CYCLOBENZAPRINE 10 MG TABLET PO PRN (12:49)
[2018-12-31] MEDS: CYCLOBENZAPRINE 10 MG TABLET PO SCH (21:34)
[2018-12-31] MEDS: SIMVASTATIN 10 MG TABLET PO SCH (21:36)
[2018-12-31] MEDS: LEVOFLOXACIN INJ 750 MG in PREMIX 1 EACH IV SCH (21:36)
[2018-12-31] MEDS: MORPHINE 4 MG/1 ML VIAL IV PRN (23:59)
[2019-01-01] MEDS: ALBUTEROL/IPRATROPIUM 3 ML NEB RESP TX SCH ×4 (01:35→19:24)
[2019-01-01 05:53] LABS: Basophils % 0.5 % (0.0-0.8); Eosinophils # 0.2 10*3/uL (0.0-0.87); Eosinophils % 2.1 % (0.00-10.9); Hematocrit 28.9 VOL% (35.7-47.0); Hemoglobin 8.7 GM/DL (12.0-16.0); Immature Granulocytes % 2.2 %; Immature Granulocytes Absolute 0.18 #; Lymphocytes # 1.5 10*3/uL (1.4-4.0); Lymphocytes % 18.3 % (21.3-54.2); Mean Corpuscular HGB Conc 30.1 GM/DL (32-36); Mean Corpuscular Hemoglobin 30 PG (27-34); Monocytes # 0.8 10*3/uL (0.11-0.8); Monocytes % 10.1 % (1.7-12.7); NRBC # 0.02 10*3/uL; Neutrophils # 5.4 10*3/uL (1.4-7.4); Neutrophils % 66.8 % (38.7-73.9); Platelet Count 308 T/CUMM (130-400); Red Blood Count 2.95 MC/CUMM (3.8-5.5); Red Cell Distribution Width 17.8 % (9.3-17.3); White Blood Count 8.1 T/CUMM (4-12)
[2019-01-01 06:03] LABS: Calcium 8.2 MG/DL (8.5-10.1); Osmolality,Calculated 278.4 MOS/KG (273-304)
[2019-01-01] MEDS: METOPROLOL TARTRATE 5 MG/5 ML VIAL IV SCH ×3 (06:05→17:30)
[2019-01-01] MEDS: busPIRone 5 MG TABLET PO SCH ×2 (08:57→21:12)
[2019-01-01] MEDS: POTASSIUM CHLORIDE 8 MEQ CAPSULE PO SCH ×2 (09:04→21:10)
[2019-01-01] MEDS: CALCIUM (CARBONATE)/VITAMIN D 600 MG-400 UNIT TABLET PO SCH ×2 (09:04→21:10)
[2019-01-01] MEDS: GABAPENTIN 300 MG CAPSULE PO SCH ×3 (09:05→21:11)
[2019-01-01] MEDS: SERTRALINE 100 MG TABLET PO SCH (09:05)
[2019-01-01] MEDS: predniSONE 10 MG TABLET PO SCH (09:05)
[2019-01-01] MEDS: CHOLECALCIFEROL 1,000 UNIT TABLET PO SCH (09:05)
[2019-01-01] MEDS: APIXABAN 5 MG TABLET PO SCH ×2 (09:06→21:11)
[2019-01-01] MEDS: CYCLOBENZAPRINE 10 MG TABLET PO SCH ×3 (09:06→21:11)
[2019-01-01] MEDS: FERROUS SULFATE 325 MG TABLET PO SCH ×2 (09:06→21:11)
[2019-01-01] MEDS: PANTOPRAZOLE 40 MG VIAL IV SCH (09:09)
[2019-01-01] MEDS: NON-FORMULARY MEDICATION (Mirabegron [Myrbetriq] 50 MG) PO SCH (09:15)
[2019-01-01] MEDS: SIMVASTATIN 10 MG TABLET PO SCH (21:11)
[2019-01-01] MEDS: LEVOFLOXACIN INJ 750 MG in PREMIX 1 EACH IV SCH (21:14)
[2019-01-02] MEDS: ALBUTEROL/IPRATROPIUM 3 ML NEB RESP TX SCH ×4 (00:48→19:04)
[2019-01-02] MEDS: MORPHINE 4 MG/1 ML VIAL IV PRN (00:48)
[2019-01-02] MEDS: METOPROLOL TARTRATE 5 MG/5 ML VIAL IV SCH ×5 (00:52→23:11)
[2019-01-02 04:52] LABS: Basophils % 0.4 % (0.0-0.8); Eosinophils # 0.2 10*3/uL (0.0-0.87); Eosinophils % 1.8 % (0.00-10.9); Hematocrit 29.3 VOL% (35.7-47.0); Immature Granulocytes % 2.2 %; Lymphocytes # 1.5 10*3/uL (1.4-4.0); Lymphocytes % 16.1 % (21.3-54.2); Mean Corpuscular HGB Conc 30.7 GM/DL (32-36); Mean Corpuscular Hemoglobin 30 PG (27-34); Monocytes % 10.9 % (1.7-12.7); Neutrophils # 6.3 10*3/uL (1.4-7.4); Neutrophils % 68.6 % (38.7-73.9); Platelet Count 328 T/CUMM (130-400); Red Blood Count 2.99 MC/CUMM (3.8-5.5); Red Cell Distribution Width 17.7 % (9.3-17.3); White Blood Count 9.2 T/CUMM (4-12)
[2019-01-02 05:07] LABS: Calcium 8.7 MG/DL (8.5-10.1); Osmolality,Calculated 281.3 MOS/KG (273-304); Potassium 3.7 MMOL/L (3.5-5.1)
[2019-01-02] MEDS: FERROUS SULFATE 325 MG TABLET PO SCH ×2 (08:54→20:38)
[2019-01-02] MEDS: CALCIUM (CARBONATE)/VITAMIN D 600 MG-400 UNIT TABLET PO SCH ×2 (08:54→20:38)
[2019-01-02] MEDS: predniSONE 10 MG TABLET PO SCH (08:55)
[2019-01-02] MEDS: CHOLECALCIFEROL 1,000 UNIT TABLET PO SCH (08:55)
[2019-01-02] MEDS: APIXABAN 5 MG TABLET PO SCH ×2 (08:55→20:38)
[2019-01-02] MEDS: GABAPENTIN 300 MG CAPSULE PO SCH ×3 (08:56→20:38)
[2019-01-02] MEDS: SERTRALINE 100 MG TABLET PO SCH (08:56)
[2019-01-02] MEDS: POTASSIUM CHLORIDE 8 MEQ CAPSULE PO SCH ×2 (08:56→20:38)
[2019-01-02] MEDS: busPIRone 5 MG TABLET PO SCH ×2 (08:57→20:39)
[2019-01-02] MEDS: CYCLOBENZAPRINE 10 MG TABLET PO SCH ×3 (08:57→20:38)
[2019-01-02] MEDS: PANTOPRAZOLE 40 MG VIAL IV SCH (09:05)
[2019-01-02] MEDS: NON-FORMULARY MEDICATION (Mirabegron [Myrbetriq] 50 MG) PO SCH (09:05)
[2019-01-02] MEDS: SIMVASTATIN 10 MG TABLET PO SCH (20:38)
[2019-01-02] MEDS: LEVOFLOXACIN INJ 750 MG in PREMIX 1 EACH IV SCH (22:15)
[2019-01-02] MEDS: DIAZEPAM 5 MG TABLET PO PRN (23:11)
[2019-01-03] MEDS: MORPHINE 4 MG/1 ML VIAL IV PRN (00:33)
[2019-01-03] MEDS: ALBUTEROL/IPRATROPIUM 3 ML NEB RESP TX SCH ×4 (01:07→18:50)
[2019-01-03 05:21] LABS: Basophils % 0.4 % (0.0-0.8); Eosinophils # 0.2 10*3/uL (0.0-0.87); Eosinophils % 1.8 % (0.00-10.9); Hematocrit 30.6 VOL% (35.7-47.0); Hemoglobin 9.3 GM/DL (12.0-16.0); Immature Granulocytes % 3.1 %; Lymphocytes # 1.6 10*3/uL (1.4-4.0); Mean Corpuscular HGB Conc 30.4 GM/DL (32-36); Mean Corpuscular Hemoglobin 30 PG (27-34); Mean Platelet Volume 8.9 FL (9.6-12.0); Monocytes % 10.8 % (1.7-12.7); Neutrophils # 6.4 10*3/uL (1.4-7.4); Neutrophils % 66.9 % (38.7-73.9); Platelet Count 349 T/CUMM (130-400); Red Blood Count 3.09 MC/CUMM (3.8-5.5); Red Cell Distribution Width 17.7 % (9.3-17.3); White Blood Count 9.5 T/CUMM (4-12)
[2019-01-03 05:31] LABS: Calcium 8.4 MG/DL (8.5-10.1); Osmolality,Calculated 282.3 MOS/KG (273-304); Potassium 3.9 MMOL/L (3.5-5.1)
[2019-01-03] MEDS: METOPROLOL TARTRATE 5 MG/5 ML VIAL IV SCH ×3 (06:10→18:10)
[2019-01-03] MEDS: PANTOPRAZOLE 40 MG VIAL IV SCH (09:13)
[2019-01-03] MEDS: SERTRALINE 100 MG TABLET PO SCH (09:13)
[2019-01-03] MEDS: busPIRone 5 MG TABLET PO SCH ×3 (09:14→22:54)
[2019-01-03] MEDS: CALCIUM (CARBONATE)/VITAMIN D 600 MG-400 UNIT TABLET PO SCH ×2 (09:14→21:10)
[2019-01-03] MEDS: FERROUS SULFATE 325 MG TABLET PO SCH ×2 (09:14→21:11)
[2019-01-03] MEDS: POTASSIUM CHLORIDE 8 MEQ CAPSULE PO SCH ×2 (09:14→21:10)
[2019-01-03] MEDS: CHOLECALCIFEROL 1,000 UNIT TABLET PO SCH (09:14)
[2019-01-03] MEDS: predniSONE 10 MG TABLET PO SCH (09:14)
[2019-01-03] MEDS: APIXABAN 5 MG TABLET PO SCH ×2 (09:14→21:11)
[2019-01-03] MEDS: CYCLOBENZAPRINE 10 MG TABLET PO SCH ×2 (09:14→16:28)
[2019-01-03] MEDS: GABAPENTIN 300 MG CAPSULE PO SCH ×3 (09:14→21:10)
[2019-01-03] MEDS: NON-FORMULARY MEDICATION (Mirabegron [Myrbetriq] 50 MG) PO SCH (09:22)
[2019-01-03] MEDS: BACLOFEN 10 MG TABLET PO SCH (21:10)
[2019-01-03] MEDS: SIMVASTATIN 10 MG TABLET PO SCH (21:10)
[2019-01-03] MEDS: LEVOFLOXACIN INJ 750 MG in PREMIX 1 EACH IV SCH (21:13)
[2019-01-04] MEDS: METOPROLOL TARTRATE 5 MG/5 ML VIAL IV SCH ×2 (01:36→05:48)
[2019-01-04] MEDS: ALBUTEROL/IPRATROPIUM 3 ML NEB RESP TX SCH ×4 (02:04→20:18)
[2019-01-04 06:25] LABS: Basophils # 0.1 10*3/uL (0.0-0.2); Basophils % 0.6 % (0.0-0.8); Eosinophils # 0.2 10*3/uL (0.0-0.87); Eosinophils % 1.7 % (0.00-10.9); Hematocrit 31.8 VOL% (35.7-47.0); Hemoglobin 9.5 GM/DL (12.0-16.0); Immature Granulocytes Absolute 0.38 #; Lymphocytes # 1.7 10*3/uL (1.4-4.0); Lymphocytes % 17.9 % (21.3-54.2); Mean Corpuscular HGB Conc 29.9 GM/DL (32-36); Mean Corpuscular Hemoglobin 30 PG (27-34); Mean Platelet Volume 8.7 FL (9.6-12.0); Monocytes % 11.1 % (1.7-12.7); Neutrophils # 6.1 10*3/uL (1.4-7.4); Neutrophils % 64.7 % (38.7-73.9); Platelet Count 391 T/CUMM (130-400); Red Blood Count 3.18 MC/CUMM (3.8-5.5); Red Cell Distribution Width 17.8 % (9.3-17.3); White Blood Count 9.4 T/CUMM (4-12)
[2019-01-04 06:48] LABS: Calcium 8.8 MG/DL (8.5-10.1); Osmolality,Calculated 280.3 MOS/KG (273-304); Potassium 3.9 MMOL/L (3.5-5.1)
[2019-01-04] MEDS: CHOLECALCIFEROL 1,000 UNIT TABLET PO SCH (09:50)
[2019-01-04] MEDS: GABAPENTIN 300 MG CAPSULE PO SCH ×3 (09:50→21:24)
[2019-01-04] MEDS: busPIRone 5 MG TABLET PO SCH ×2 (09:50→21:25)
[2019-01-04] MEDS: POTASSIUM CHLORIDE 8 MEQ CAPSULE PO SCH ×2 (09:50→21:24)
[2019-01-04] MEDS: PANTOPRAZOLE 40 MG VIAL IV SCH (09:50)
[2019-01-04] MEDS: APIXABAN 5 MG TABLET PO SCH ×2 (09:50→21:24)
[2019-01-04] MEDS: BACLOFEN 10 MG TABLET PO SCH ×4 (09:50→21:25)
[2019-01-04] MEDS: CALCIUM (CARBONATE)/VITAMIN D 600 MG-400 UNIT TABLET PO SCH ×2 (09:51→21:25)
[2019-01-04] MEDS: predniSONE 10 MG TABLET PO SCH (09:51)
[2019-01-04] MEDS: NON-FORMULARY MEDICATION (Mirabegron [Myrbetriq] 50 MG) PO SCH (09:51)
[2019-01-04] MEDS: SERTRALINE 100 MG TABLET PO SCH (09:51)
[2019-01-04] MEDS: FERROUS SULFATE 325 MG TABLET PO SCH ×2 (09:51→21:25)
[2019-01-04] MEDS ORDERED: METOPROLOL TARTRATE 5 MG/5 ML VIAL IV PRN (11:42)
[2019-01-04 17:31] LABS: Apearance,Urine CLEAR (Clear); Bilirubin,Urine Negative (Negative); Blood, Urine Negative (Negative); Glucose,Urine (UA) Negative (Negative); Ketones,Urine Negative (Negative); Mucus,Urine Few /LPF (Occasional); Nitrite,Urine Negative (Negative); Protein,Urine Negative; RBC,Urine 3 /HPF (0-4); Squamous Epithelial Cell,Urine Occasional /HPF (0-10); Urine Color Yellow (Yellow); Urine Urobilinogen < 2.0 EU/DL (0.2-1.0); WBC,Urine 21 /HPF (0-6)
[2019-01-04] MEDS: LEVOFLOXACIN INJ 750 MG in PREMIX 1 EACH IV SCH (21:24)
[2019-01-04] MEDS: SIMVASTATIN 10 MG TABLET PO SCH (21:24)
[2019-01-05] MEDS: ALBUTEROL/IPRATROPIUM 3 ML NEB RESP TX SCH ×2 (01:23→08:20)
[2019-01-05 04:48] LABS: Basophils # 0.1 10*3/uL (0.0-0.2); Basophils % 0.5 % (0.0-0.8); Eosinophils # 0.2 10*3/uL (0.0-0.87); Eosinophils % 1.5 % (0.00-10.9); Hematocrit 31.9 VOL% (35.7-47.0); Hemoglobin 9.6 GM/DL (12.0-16.0); Immature Granulocytes % 2.2 %; Immature Granulocytes Absolute 0.21 #; Lymphocytes # 1.4 10*3/uL (1.4-4.0); Lymphocytes % 14.8 % (21.3-54.2); Mean Corpuscular HGB Conc 30.1 GM/DL (32-36); Mean Corpuscular Hemoglobin 30 PG (27-34); Mean Corpuscular Volume 99.4 FL (87-102); Mean Platelet Volume 8.8 FL (9.6-12.0); Monocytes % 10.4 % (1.7-12.7); NRBC # 0.02 10*3/uL; Neutrophils # 6.8 10*3/uL (1.4-7.4); Neutrophils % 70.6 % (38.7-73.9); Platelet Count 376 T/CUMM (130-400); Red Blood Count 3.21 MC/CUMM (3.8-5.5); Red Cell Distribution Width 17.9 % (9.3-17.3); White Blood Count 9.7 T/CUMM (4-12)
[2019-01-05 05:07] LABS: Calcium 8.7 MG/DL (8.5-10.1); Osmolality,Calculated 279.4 MOS/KG (273-304); Potassium 3.8 MMOL/L (3.5-5.1)
[2019-01-05] MEDS: APIXABAN 5 MG TABLET PO SCH (09:46)
[2019-01-05] MEDS: CHOLECALCIFEROL 1,000 UNIT TABLET PO SCH (09:46)
[2019-01-05] MEDS: CALCIUM (CARBONATE)/VITAMIN D 600 MG-400 UNIT TABLET PO SCH (09:46)
[2019-01-05] MEDS: PANTOPRAZOLE 40 MG VIAL IV SCH (09:46)
[2019-01-05] MEDS: busPIRone 5 MG TABLET PO SCH ×2 (09:46→09:50)
[2019-01-05] MEDS: POTASSIUM CHLORIDE 8 MEQ CAPSULE PO SCH (09:47)
[2019-01-05] MEDS: BACLOFEN 10 MG TABLET PO SCH ×2 (09:47→13:49)
[2019-01-05] MEDS: SERTRALINE 100 MG TABLET PO SCH (09:47)
[2019-01-05] MEDS: NON-FORMULARY MEDICATION (Mirabegron [Myrbetriq] 50 MG) PO SCH (09:48)
[2019-01-05] MEDS: predniSONE 10 MG TABLET PO SCH (09:48)
[2019-01-05] MEDS: GABAPENTIN 300 MG CAPSULE PO SCH (09:48)
[2019-01-05] MEDS: FERROUS SULFATE 325 MG TABLET PO SCH (09:48)
[2019-01-05 12:21] VITALS: BP 126/66
== END 2019-01-05 14:45 | disposition home health service (06) | DRG 175 ==
LOC: N.ED 16:37 → N.EDINP 19:22 → N.CC 19:55 → N.3E 12-30 10:47
PROVIDERS: ADMIT Internal Medicine; ATTEND Internal Medicine

== ENCOUNTER 2020-08-25 19:54 | Inpatient (IN) ==
[2020-08-25] MEDS ORDERED: SODIUM CHLORIDE 0.9% 500 ML IV STA (22:19)
[2020-08-25] MEDS ORDERED: cefTRIAXone 1,000 MG in SODIUM CHLORIDE 0.9% 100 ML IV STA (22:19)
[2020-08-25 23:12] LABS: Basophils % 0.2 % (0.0-0.8); Eosinophils % 0.1 % (0.00-10.9); Hematocrit 42.7 VOL% (35.7-47.0); Hemoglobin 13.5 GM/DL (12.0-16.0); Immature Granulocytes % 0.6 %; Immature Granulocytes Absolute 0.09 #; Lymphocytes # 1.4 10*3/uL (1.4-4.0); Lymphocytes % 8.5 % (21.3-54.2); Mean Corpuscular HGB Conc 31.6 GM/DL (32-36); Mean Corpuscular Volume 98.4 FL (87-102); Mean Platelet Volume 10.2 FL (9.6-12.0); Monocytes % 9.8 % (1.7-12.7); Neutrophils % 80.8 % (38.7-73.9); Platelet Count 194 T/CUMM (130-400); Red Blood Count 4.34 MC/CUMM (3.8-5.5); Red Cell Distribution Width 13.5 % (9.3-17.3); White Blood Count 16.3 T/CUMM (4-12)
[2020-08-25 23:24] LABS: Bilirubin,Urine Negative (Negative); Blood, Urine Negative (Negative); Glucose,Urine (UA) Negative (Negative); Hyaline Casts,Urine 1 /LPF (0-3); Ketones,Urine 20 mg/dL (Negative); Mucus,Urine Occasional /LPF (Occasional); Nitrite,Urine Negative (Negative); Protein,Urine Negative; RBC,Urine 28 /HPF (0-4); Squamous Epithelial Cell,Urine Occasional /HPF (0-10); Urine Appearance CLEAR (Clear); Urine Color Yellow (Yellow); Urine Specific Gravity 1.021 (1.001-1.035); Urine Urobilinogen < 2.0 EU/DL (0.2-1.0); WBC,Urine 9 /HPF (0-6)
[2020-08-25 23:31] LABS: Albumin 3.4 G/DL (3.4-5.0); Bilirubin,Total 0.4 MG/DL (0.2-1.0); Calcium 9.7 MG/DL (8.5-10.1); Osmolality,Calculated 274.8 MOS/KG (273-304); Total Protein 7.6 G/DL (6.4-8.3)
[2020-08-26] MEDS ORDERED: ONDANSETRON 4 MG/2 ML VIAL IV PRN (00:06)
[2020-08-26] MEDS: ACETAMINOPHEN 325 MG TABLET PO PRN ×2 (03:19→16:17)
[2020-08-26] MEDS: SODIUM CHLORIDE 0.9% 1,000 ML IV SCH ×3 (03:19→16:12)
[2020-08-26] MEDS: GABAPENTIN 300 MG CAPSULE PO SCH ×3 (08:45→21:41)
[2020-08-26] MEDS: BACLOFEN 10 MG TABLET PO SCH ×4 (08:45→21:31)
[2020-08-26] MEDS: DOCUSATE SODIUM 100 MG CAPSULE PO SCH ×2 (08:47→21:41)
[2020-08-26] MEDS: SERTRALINE 100 MG TABLET PO SCH (08:48)
[2020-08-26] MEDS: busPIRone 5 MG TABLET PO SCH ×2 (08:53→21:41)
[2020-08-26] MEDS: CALCIUM (CARBONATE)/VITAMIN D 600 MG-400 UNIT TABLET PO SCH ×2 (08:53→21:41)
[2020-08-26] MEDS: PANTOPRAZOLE 40 MG TABLET PO SCH (08:54)
[2020-08-26] MEDS: CHOLECALCIFEROL 1,000 UNIT TABLET PO SCH (08:55)
[2020-08-26] MEDS ORDERED: INFLUENZA VIRUS VACCINE 0.5 ML SYRINGE IM ONE (09:00)
[2020-08-26] MEDS ORDERED: ASPIRIN EC 81 MG TABLET PO SCH (09:00)
[2020-08-26] MEDS ORDERED: APIXABAN 5 MG TABLET PO SCH (09:00)
[2020-08-26] MEDS: Mirabegron [Myrbetriq] 50 MG Tab.Er.24h PO SCH (11:54)
[2020-08-26] MEDS: predniSONE 10 MG TABLET PO SCH (14:28)
[2020-08-26] MEDS: DIAZEPAM 5 MG TABLET PO PRN (16:12)
[2020-08-26] MEDS: MENTHOL/ZINC OXIDE OINT 71 GM JAR TOP SCH (21:31)
[2020-08-26] MEDS: cefTRIAXone 1,000 MG in SYRINGE 1 EACH IV SCH (21:40)
[2020-08-26] MEDS: SIMVASTATIN 10 MG TABLET PO SCH (21:41)
[2020-08-26] MEDS: BACLOFEN 20 MG TABLET PO SCH (21:41)
[2020-08-26] MEDS: ASPIRIN EC 81 MG TABLET PO SCH (21:41)
[2020-08-26] MEDS: APIXABAN 5 MG TABLET PO SCH (21:41)
[2020-08-27] MEDS: DIAZEPAM 5 MG TABLET PO PRN (01:06)
[2020-08-27 07:14] LABS: Basophils % 0.2 % (0.0-0.8); Eosinophils # 0.1 10*3/uL (0.0-0.87); Eosinophils % 1.3 % (0.00-10.9); Immature Granulocytes % 0.5 %; Immature Granulocytes Absolute 0.05 #; Lymphocytes # 1.5 10*3/uL (1.4-4.0); Lymphocytes % 13.7 % (21.3-54.2); Mean Corpuscular HGB Conc 31.4 GM/DL (32-36); Mean Corpuscular Volume 97.5 FL (87-102); Mean Platelet Volume 10.4 FL (9.6-12.0); Neutrophils % 75.3 % (38.7-73.9); Platelet Count 176 T/CUMM (130-400); Red Blood Count 3.59 MC/CUMM (3.8-5.5); Red Cell Distribution Width 13.6 % (9.3-17.3)
[2020-08-27 07:20] LABS: Calcium 8.8 MG/DL (8.5-10.1); Osmolality,Calculated 282.8 MOS/KG (273-304)
[2020-08-27] MEDS: SERTRALINE 100 MG TABLET PO SCH (09:34)
[2020-08-27] MEDS: busPIRone 5 MG TABLET PO SCH ×2 (09:34→21:48)
[2020-08-27] MEDS: CHOLECALCIFEROL 1,000 UNIT TABLET PO SCH (09:34)
[2020-08-27] MEDS: BACLOFEN 10 MG TABLET PO SCH ×3 (09:35→21:48)
[2020-08-27] MEDS: PANTOPRAZOLE 40 MG TABLET PO SCH (09:35)
[2020-08-27] MEDS: CALCIUM (CARBONATE)/VITAMIN D 600 MG-400 UNIT TABLET PO SCH ×2 (09:36→21:48)
[2020-08-27] MEDS: DOCUSATE SODIUM 100 MG CAPSULE PO SCH ×2 (09:36→21:48)
[2020-08-27] MEDS: predniSONE 10 MG TABLET PO SCH (09:36)
[2020-08-27] MEDS: ASPIRIN EC 81 MG TABLET PO SCH (09:36)
[2020-08-27] MEDS: APIXABAN 5 MG TABLET PO SCH ×2 (09:37→21:48)
[2020-08-27] MEDS: OMEGA 3 ACID ETHYL ESTERS 1 GM CAPSULE PO SCH (09:37)
[2020-08-27] MEDS: MENTHOL/ZINC OXIDE OINT 71 GM JAR TOP SCH ×2 (09:38→21:49)
[2020-08-27] MEDS: GABAPENTIN 300 MG CAPSULE PO SCH ×3 (12:24→21:48)
[2020-08-27] MEDS: Mirabegron [Myrbetriq] 50 MG Tab.Er.24h PO SCH (14:55)
[2020-08-27] MEDS: SODIUM CHLORIDE 0.9% 1,000 ML IV SCH (14:55)
[2020-08-27] MEDS: cefTRIAXone 1,000 MG in SYRINGE 1 EACH IV SCH (21:47)
[2020-08-27] MEDS: BACLOFEN 20 MG TABLET PO SCH (21:48)
[2020-08-27] MEDS: SIMVASTATIN 10 MG TABLET PO SCH (21:48)
[2020-08-28] MEDS: DIAZEPAM 5 MG TABLET PO PRN (00:59)
[2020-08-28 05:42] LABS: Basophils % 0.3 % (0.0-0.8); Eosinophils # 0.2 10*3/uL (0.0-0.87); Eosinophils % 2.4 % (0.00-10.9); Hematocrit 34.6 VOL% (35.7-47.0); Hemoglobin 11.1 GM/DL (12.0-16.0); Immature Granulocytes % 0.4 %; Immature Granulocytes Absolute 0.04 #; Lymphocytes # 1.7 10*3/uL (1.4-4.0); Lymphocytes % 18.3 % (21.3-54.2); Mean Corpuscular HGB Conc 32.1 GM/DL (32-36); Mean Corpuscular Volume 96.9 FL (87-102); Neutrophils % 69.6 % (38.7-73.9); Platelet Count 192 T/CUMM (130-400); Red Blood Count 3.57 MC/CUMM (3.8-5.5); Red Cell Distribution Width 13.5 % (9.3-17.3); White Blood Count 9.1 T/CUMM (4-12)
[2020-08-28 06:02] LABS: Calcium 8.8 MG/DL (8.5-10.1)
[2020-08-28] MEDS ORDERED: INFLUENZA VIRUS VACCINE 0.5 ML SYRINGE IM ONE (08:39)
[2020-08-28] MEDS: CHOLECALCIFEROL 1,000 UNIT TABLET PO SCH (13:35)
[2020-08-28] MEDS: predniSONE 10 MG TABLET PO SCH (13:36)
[2020-08-28] MEDS: SERTRALINE 100 MG TABLET PO SCH (13:36)
[2020-08-28] MEDS: GABAPENTIN 300 MG CAPSULE PO SCH ×3 (13:36→21:53)
[2020-08-28] MEDS: ASPIRIN EC 81 MG TABLET PO SCH (13:36)
[2020-08-28] MEDS: PANTOPRAZOLE 40 MG TABLET PO SCH (13:36)
[2020-08-28] MEDS: OMEGA 3 ACID ETHYL ESTERS 1 GM CAPSULE PO SCH (13:36)
[2020-08-28] MEDS: busPIRone 5 MG TABLET PO SCH ×4 (13:37→21:54)
[2020-08-28] MEDS: DOCUSATE SODIUM 100 MG CAPSULE PO SCH ×2 (13:37→21:54)
[2020-08-28] MEDS: APIXABAN 5 MG TABLET PO SCH ×2 (13:37→21:53)
[2020-08-28] MEDS: BACLOFEN 10 MG TABLET PO SCH ×4 (13:37→21:54)
[2020-08-28] MEDS: Mirabegron [Myrbetriq] 50 MG Tab.Er.24h PO SCH (13:43)
[2020-08-28] MEDS: MENTHOL/ZINC OXIDE OINT 71 GM JAR TOP SCH ×2 (13:43→21:54)
[2020-08-28] MEDS: CALCIUM (CARBONATE)/VITAMIN D 600 MG-400 UNIT TABLET PO SCH ×2 (14:07→21:54)
[2020-08-28] MEDS: BACLOFEN 20 MG TABLET PO SCH (21:54)
[2020-08-28] MEDS: cefTRIAXone 1,000 MG in SYRINGE 1 EACH IV SCH (21:54)
[2020-08-28] MEDS: SIMVASTATIN 10 MG TABLET PO SCH (21:54)
[2020-08-29] MEDS: SODIUM CHLORIDE 0.9% 1,000 ML IV SCH ×2 (06:23→06:24)
[2020-08-29 06:42] LABS: Basophils % 0.5 % (0.0-0.8); Eosinophils # 0.1 10*3/uL (0.0-0.87); Eosinophils % 1.6 % (0.00-10.9); Hematocrit 37.2 VOL% (35.7-47.0); Hemoglobin 11.7 GM/DL (12.0-16.0); Immature Granulocytes % 0.8 %; Immature Granulocytes Absolute 0.07 #; Lymphocytes # 1.4 10*3/uL (1.4-4.0); Lymphocytes % 17.2 % (21.3-54.2); Mean Corpuscular HGB Conc 31.5 GM/DL (32-36); Mean Corpuscular Volume 96.6 FL (87-102); Monocytes % 10.5 % (1.7-12.7); Neutrophils % 69.4 % (38.7-73.9); Platelet Count 217 T/CUMM (130-400); Red Blood Count 3.85 MC/CUMM (3.8-5.5); Red Cell Distribution Width 13.4 % (9.3-17.3); White Blood Count 8.3 T/CUMM (4-12)
[2020-08-29 06:53] LABS: Calcium 9.4 MG/DL (8.5-10.1); Osmolality,Calculated 278.3 MOS/KG (273-304)
[2020-08-29] MEDS: SERTRALINE 100 MG TABLET PO SCH (12:18)
[2020-08-29] MEDS: APIXABAN 5 MG TABLET PO SCH (12:18)
[2020-08-29] MEDS: GABAPENTIN 300 MG CAPSULE PO SCH (12:18)
[2020-08-29] MEDS: busPIRone 5 MG TABLET PO SCH (12:18)
[2020-08-29] MEDS: CHOLECALCIFEROL 1,000 UNIT TABLET PO SCH (12:18)
[2020-08-29] MEDS: ASPIRIN EC 81 MG TABLET PO SCH (12:19)
[2020-08-29] MEDS: MENTHOL/ZINC OXIDE OINT 71 GM JAR TOP SCH (12:19)
[2020-08-29] MEDS: BACLOFEN 10 MG TABLET PO SCH (12:19)
[2020-08-29] MEDS: CALCIUM (CARBONATE)/VITAMIN D 600 MG-400 UNIT TABLET PO SCH (12:19)
[2020-08-29] MEDS: PANTOPRAZOLE 40 MG TABLET PO SCH (12:19)
[2020-08-29] MEDS: DOCUSATE SODIUM 100 MG CAPSULE PO SCH (12:19)
[2020-08-29] MEDS: predniSONE 10 MG TABLET PO SCH (12:19)
[2020-08-29] MEDS: OMEGA 3 ACID ETHYL ESTERS 1 GM CAPSULE PO SCH (12:19)
[2020-08-29 12:35] VITALS: BP 140/81
[2020-08-29] MEDS: cefTRIAXone 1,000 MG in SYRINGE 1 EACH IV SCH (12:48)
[2020-08-29] MEDS: Mirabegron [Myrbetriq] 50 MG Tab.Er.24h PO SCH (12:48)
== END 2020-08-29 13:22 | disposition home health service (06) | DRG 194 ==
LOC: N.ED 19:54 → N.EDINP 08-26 00:06 → N.3E 08-26 02:08
PROVIDERS: ADMIT Internal Medicine; ATTEND Internal Medicine

== ENCOUNTER 2020-10-09 10:36 | Inpatient (IN) ==
[2020-10-09] MEDS ORDERED: ACETAMINOPHEN 325 MG TABLET PO PRN (10:56)
[2020-10-09] MEDS ORDERED: ONDANSETRON 4 MG/2 ML VIAL IV PRN (10:56)
[2020-10-09] MEDS ORDERED: LEVOFLOXACIN 500 MG TABLET PO SCH (11:30)
[2020-10-09 14:35] LABS: Albumin 3.1 G/DL (3.4-5.0); Bilirubin,Total 0.7 MG/DL (0.2-1.0); Calcium 9.6 MG/DL (8.5-10.1); Ferritin 229.6 ng/ml (8-252); Osmolality,Calculated 280.8 MOS/KG (273-304); Total Protein 7.1 G/DL (6.4-8.3)
[2020-10-09 15:38] LABS: Bilirubin,Urine Negative (Negative); Blood, Urine Negative (Negative); Glucose,Urine (UA) Negative (Negative); Ketones,Urine 5 mg/dL (Negative); Mucus,Urine Occasional /LPF (Occasional); Nitrite,Urine Negative (Negative); Protein,Urine Negative; RBC,Urine 10 /HPF (0-4); Squamous Epithelial Cell,Urine Occasional /HPF (0-10); Urine Appearance CLEAR (Clear); Urine Color Yellow (Yellow); Urine Specific Gravity 1.055 (1.001-1.035); Urine Urobilinogen < 2.0 EU/DL (0.2-1.0); WBC,Urine 17 /HPF (0-6)
[2020-10-09] MEDS ORDERED: DIAZEPAM 5 MG TABLET PO PRN (16:43)
[2020-10-09] MEDS: PIPERACILLIN/TAZOBACTAM 3,375 MG in SODIUM CHLORIDE 0.9% 100 ML IV SCH (17:24)
[2020-10-09] MEDS: DOCUSATE SODIUM 100 MG CAPSULE PO SCH (21:25)
[2020-10-10] MEDS: PIPERACILLIN/TAZOBACTAM 3,375 MG in SODIUM CHLORIDE 0.9% 100 ML IV SCH ×3 (01:12→16:57)
[2020-10-10 04:14] LABS: Basophils % 0.6 % (0.0-0.8); Eosinophils # 0.3 10*3/uL (0.0-0.87); Eosinophils % 4.2 % (0.00-10.9); Hematocrit 26.3 VOL% (35.7-47.0); Hemoglobin 8.4 GM/DL (12.0-16.0); Immature Granulocytes % 0.9 %; Immature Granulocytes Absolute 0.06 #; Lymphocytes # 1.6 10*3/uL (1.4-4.0); Lymphocytes % 24.4 % (21.3-54.2); Mean Corpuscular HGB Conc 31.9 GM/DL (32-36); Mean Corpuscular Volume 98.1 FL (87-102); Mean Platelet Volume 8.8 FL (9.6-12.0); Monocytes % 12.7 % (1.7-12.7); Neutrophils % 57.2 % (38.7-73.9); Platelet Count 348 T/CUMM (130-400); Red Blood Count 2.68 MC/CUMM (3.8-5.5); Red Cell Distribution Width 18.3 % (9.3-17.3); White Blood Count 6.6 T/CUMM (4-12)
[2020-10-10 04:30] LABS: Calcium 8.6 MG/DL (8.5-10.1); Osmolality,Calculated 283.1 MOS/KG (273-304)
[2020-10-10] MEDS: PANTOPRAZOLE 40 MG TABLET PO SCH (06:00)
[2020-10-10] MEDS: DOCUSATE SODIUM 100 MG CAPSULE PO SCH ×2 (10:14→22:33)
[2020-10-10] MEDS ORDERED: OXYBUTYNIN XL 10 MG TABLET PO SCH (12:00)
[2020-10-10] MEDS: GABAPENTIN 300 MG CAPSULE PO SCH ×2 (14:50→22:32)
[2020-10-10] MEDS: SERTRALINE 100 MG TABLET PO SCH (14:51)
[2020-10-10] MEDS: predniSONE 10 MG TABLET PO SCH (14:51)
[2020-10-10] MEDS ORDERED: LACTULOSE 20 GM/30 ML UDCUP PO ONE (15:00)
[2020-10-10] MEDS: BACLOFEN 10 MG TABLET PO SCH ×2 (16:56→22:33)
[2020-10-10] MEDS: MENTHOL/ZINC OXIDE OINT 71 GM JAR TOP SCH (22:32)
[2020-10-10] MEDS: SIMVASTATIN 10 MG TABLET PO SCH (22:33)
[2020-10-10] MEDS: METHENAMINE HIPPURATE 1 GM TABLET PO SCH (22:33)
[2020-10-11] MEDS: PIPERACILLIN/TAZOBACTAM 3,375 MG in SODIUM CHLORIDE 0.9% 100 ML IV SCH ×3 (01:14→17:39)
[2020-10-11 04:21] LABS: Basophils % 0.5 % (0.0-0.8); Eosinophils # 0.1 10*3/uL (0.0-0.87); Eosinophils % 1.8 % (0.00-10.9); Hematocrit 30.6 VOL% (35.7-47.0); Hemoglobin 9.4 GM/DL (12.0-16.0); Immature Granulocytes Absolute 0.06 #; Lymphocytes % 15.9 % (21.3-54.2); Mean Corpuscular HGB Conc 30.7 GM/DL (32-36); Mean Corpuscular Volume 99.7 FL (87-102); Mean Platelet Volume 8.7 FL (9.6-12.0); Monocytes % 11.7 % (1.7-12.7); Neutrophils % 69.1 % (38.7-73.9); Platelet Count 377 T/CUMM (130-400); Red Blood Count 3.07 MC/CUMM (3.8-5.5); Red Cell Distribution Width 17.7 % (9.3-17.3); White Blood Count 6.2 T/CUMM (4-12)
[2020-10-11 04:45] LABS: Calcium 8.5 MG/DL (8.5-10.1); Osmolality,Calculated 278.4 MOS/KG (273-304)
[2020-10-11] MEDS: PANTOPRAZOLE 40 MG TABLET PO SCH (07:05)
[2020-10-11] MEDS: MENTHOL/ZINC OXIDE OINT 71 GM JAR TOP SCH ×2 (09:26→20:36)
[2020-10-11] MEDS: GABAPENTIN 300 MG CAPSULE PO SCH ×3 (10:52→20:33)
[2020-10-11] MEDS: BACLOFEN 10 MG TABLET PO SCH ×4 (10:56→20:34)
[2020-10-11] MEDS: LACTATED RINGERS 1,000 ML IV SCH (12:30)
[2020-10-11] MEDS ORDERED: LIDOCAINE 2% 5 ML VIAL ONE (14:21)
[2020-10-11] MEDS ORDERED: PHENYLEPHRINE 1 MG/10 ML SYRINGE IV ONE (14:21)
[2020-10-11] MEDS ORDERED: propofoL 200 MG/20 ML VIAL IV ONE (14:21)
[2020-10-11] MEDS: DOCUSATE SODIUM 100 MG CAPSULE PO SCH ×2 (17:37→20:34)
[2020-10-11] MEDS: MULTIVITAMIN (CENTRUM) TABLET PO SCH (17:37)
[2020-10-11] MEDS: METHENAMINE HIPPURATE 1 GM TABLET PO SCH ×2 (17:37→20:33)
[2020-10-11] MEDS: POLYETHYLENE GLYCOL POWDER 17 GM PACK PO SCH (17:37)
[2020-10-11] MEDS: SERTRALINE 100 MG TABLET PO SCH (17:37)
[2020-10-11] MEDS: MYRBETRIQ 50 MG TABLET PO SCH (17:37)
[2020-10-11] MEDS: predniSONE 10 MG TABLET PO SCH (17:37)
[2020-10-11] MEDS: OMEGA 3 ACID ETHYL ESTERS 1 GM CAPSULE PO SCH (17:37)
[2020-10-11] MEDS: ASCORBIC ACID 500 MG TABLET PO SCH (17:37)
[2020-10-11] MEDS: SIMVASTATIN 10 MG TABLET PO SCH (20:34)
[2020-10-12] MEDS: PIPERACILLIN/TAZOBACTAM 3,375 MG in SODIUM CHLORIDE 0.9% 100 ML IV SCH ×3 (00:59→16:09)
[2020-10-12] MEDS: PANTOPRAZOLE 40 MG TABLET PO SCH (06:23)
[2020-10-12 06:43] LABS: Basophils % 0.3 % (0.0-0.8); Eosinophils # 0.2 10*3/uL (0.0-0.87); Eosinophils % 2.6 % (0.00-10.9); Hematocrit 29.6 VOL% (35.7-47.0); Immature Granulocytes % 0.8 %; Immature Granulocytes Absolute 0.05 #; Lymphocytes # 0.9 10*3/uL (1.4-4.0); Lymphocytes % 14.3 % (21.3-54.2); Mean Corpuscular HGB Conc 30.4 GM/DL (32-36); Mean Corpuscular Volume 100.7 FL (87-102); Mean Platelet Volume 8.9 FL (9.6-12.0); Monocytes % 11.4 % (1.7-12.7); Neutrophils % 70.6 % (38.7-73.9); Platelet Count 394 T/CUMM (130-400); Red Blood Count 2.94 MC/CUMM (3.8-5.5); Red Cell Distribution Width 17.2 % (9.3-17.3); White Blood Count 6.5 T/CUMM (4-12)
[2020-10-12] MEDS: MULTIVITAMIN (CENTRUM) TABLET PO SCH (09:08)
[2020-10-12] MEDS: ASCORBIC ACID 500 MG TABLET PO SCH (09:09)
[2020-10-12] MEDS: SERTRALINE 100 MG TABLET PO SCH (09:09)
[2020-10-12] MEDS: BACLOFEN 10 MG TABLET PO SCH ×4 (09:10→20:19)
[2020-10-12] MEDS: DOCUSATE SODIUM 100 MG CAPSULE PO SCH ×2 (09:10→20:19)
[2020-10-12] MEDS: predniSONE 10 MG TABLET PO SCH (09:10)
[2020-10-12] MEDS: MENTHOL/ZINC OXIDE OINT 71 GM JAR TOP SCH ×2 (09:11→20:19)
[2020-10-12] MEDS: GABAPENTIN 300 MG CAPSULE PO SCH ×3 (09:11→20:19)
[2020-10-12] MEDS: MYRBETRIQ 50 MG TABLET PO SCH (09:11)
[2020-10-12] MEDS: OMEGA 3 ACID ETHYL ESTERS 1 GM CAPSULE PO SCH (09:11)
[2020-10-12] MEDS: METHENAMINE HIPPURATE 1 GM TABLET PO SCH ×2 (09:11→20:19)
[2020-10-12] MEDS: POLYETHYLENE GLYCOL POWDER 17 GM PACK PO SCH (09:12)
[2020-10-12] MEDS: LACTATED RINGERS 1,000 ML IV SCH (14:29)
[2020-10-12] MEDS: SIMVASTATIN 10 MG TABLET PO SCH (20:19)
[2020-10-13] MEDS: PIPERACILLIN/TAZOBACTAM 3,375 MG in SODIUM CHLORIDE 0.9% 100 ML IV SCH ×3 (01:00→16:00)
[2020-10-13 06:53] LABS: Basophils % 0.5 % (0.0-0.8); Eosinophils # 0.2 10*3/uL (0.0-0.87); Eosinophils % 3.7 % (0.00-10.9); Hematocrit 29.6 VOL% (35.7-47.0); Immature Granulocytes % 0.6 %; Immature Granulocytes Absolute 0.04 #; Lymphocytes # 1.5 10*3/uL (1.4-4.0); Lymphocytes % 23.7 % (21.3-54.2); Mean Corpuscular HGB Conc 30.4 GM/DL (32-36); Mean Corpuscular Volume 100.3 FL (87-102); Mean Platelet Volume 8.7 FL (9.6-12.0); Monocytes % 9.8 % (1.7-12.7); Neutrophils % 61.7 % (38.7-73.9); Platelet Count 392 T/CUMM (130-400); Red Blood Count 2.95 MC/CUMM (3.8-5.5); Red Cell Distribution Width 16.9 % (9.3-17.3); White Blood Count 6.3 T/CUMM (4-12)
[2020-10-13] MEDS: PANTOPRAZOLE 40 MG TABLET PO SCH (06:54)
[2020-10-13 07:11] LABS: Albumin 2.6 G/DL (3.4-5.0); Bilirubin,Total 0.6 MG/DL (0.2-1.0); Calcium 8.6 MG/DL (8.5-10.1); Osmolality,Calculated 281.1 MOS/KG (273-304)
[2020-10-13 07:30] LABS: Anisocytosis 1+; Band Neutrophils 4 % (0-10); Eosinophils 8 % (0-10); Lymphocytes 22 % (20-55); Macrocytosis Slight; Platelet Estimate Normal; Segmented Neutrophils 56 % (50-85); Smudge Cells Few; Total Cells Counted 100
[2020-10-13] MEDS: MYRBETRIQ 50 MG TABLET PO SCH (08:27)
[2020-10-13] MEDS: SERTRALINE 100 MG TABLET PO SCH (08:27)
[2020-10-13] MEDS: MULTIVITAMIN (CENTRUM) TABLET PO SCH (08:27)
[2020-10-13] MEDS: OMEGA 3 ACID ETHYL ESTERS 1 GM CAPSULE PO SCH (08:27)
[2020-10-13] MEDS: ASCORBIC ACID 500 MG TABLET PO SCH (08:28)
[2020-10-13] MEDS: BACLOFEN 10 MG TABLET PO SCH ×4 (08:28→20:39)
[2020-10-13] MEDS: GABAPENTIN 300 MG CAPSULE PO SCH ×3 (08:28→20:39)
[2020-10-13] MEDS: DOCUSATE SODIUM 100 MG CAPSULE PO SCH ×2 (08:28→20:39)
[2020-10-13] MEDS: METHENAMINE HIPPURATE 1 GM TABLET PO SCH ×2 (08:28→20:39)
[2020-10-13] MEDS: predniSONE 10 MG TABLET PO SCH (08:28)
[2020-10-13] MEDS: MENTHOL/ZINC OXIDE OINT 71 GM JAR TOP SCH ×2 (08:28→20:39)
[2020-10-13] MEDS: POLYETHYLENE GLYCOL POWDER 17 GM PACK PO SCH (08:28)
[2020-10-13] MEDS: LACTATED RINGERS 1,000 ML IV SCH (12:16)
[2020-10-13] MEDS: SIMVASTATIN 10 MG TABLET PO SCH (20:39)
[2020-10-14] MEDS: PIPERACILLIN/TAZOBACTAM 3,375 MG in SODIUM CHLORIDE 0.9% 100 ML IV SCH ×2 (00:47→09:48)
[2020-10-14 06:08] LABS: Basophils # 0.1 10*3/uL (0.0-0.2); Basophils % 0.8 % (0.0-0.8); Eosinophils # 0.2 10*3/uL (0.0-0.87); Eosinophils % 3.7 % (0.00-10.9); Hematocrit 30.9 VOL% (35.7-47.0); Hemoglobin 9.2 GM/DL (12.0-16.0); Immature Granulocytes % 0.6 %; Immature Granulocytes Absolute 0.04 #; Lymphocytes # 1.3 10*3/uL (1.4-4.0); Lymphocytes % 20.5 % (21.3-54.2); Mean Corpuscular HGB Conc 29.8 GM/DL (32-36); Mean Corpuscular Volume 102.3 FL (87-102); Mean Platelet Volume 8.9 FL (9.6-12.0); Monocytes % 11.4 % (1.7-12.7); Platelet Count 368 T/CUMM (130-400); Red Blood Count 3.02 MC/CUMM (3.8-5.5); Red Cell Distribution Width 17.2 % (9.3-17.3); White Blood Count 6.3 T/CUMM (4-12)
[2020-10-14 06:19] LABS: Calcium 8.6 MG/DL (8.5-10.1)
[2020-10-14] MEDS: PANTOPRAZOLE 40 MG TABLET PO SCH (06:33)
[2020-10-14] MEDS: MYRBETRIQ 50 MG TABLET PO SCH (09:50)
[2020-10-14] MEDS: SERTRALINE 100 MG TABLET PO SCH (09:50)
[2020-10-14] MEDS: METHENAMINE HIPPURATE 1 GM TABLET PO SCH (09:51)
[2020-10-14] MEDS: POLYETHYLENE GLYCOL POWDER 17 GM PACK PO SCH (09:51)
[2020-10-14] MEDS: BACLOFEN 10 MG TABLET PO SCH ×2 (09:51→11:58)
[2020-10-14] MEDS: OMEGA 3 ACID ETHYL ESTERS 1 GM CAPSULE PO SCH (09:51)
[2020-10-14] MEDS: MULTIVITAMIN (CENTRUM) TABLET PO SCH (09:51)
[2020-10-14] MEDS: GABAPENTIN 300 MG CAPSULE PO SCH (09:51)
[2020-10-14] MEDS: ASCORBIC ACID 500 MG TABLET PO SCH (09:51)
[2020-10-14] MEDS: DOCUSATE SODIUM 100 MG CAPSULE PO SCH (09:51)
[2020-10-14] MEDS: predniSONE 10 MG TABLET PO SCH (09:51)
[2020-10-14] MEDS: MENTHOL/ZINC OXIDE OINT 71 GM JAR TOP SCH (11:48)
[2020-10-14 11:53] VITALS: BP 117/67
== END 2020-10-14 15:09 | disposition home health service (06) | DRG 811 ==
LOC: N.5E 13:14
PROVIDERS: ADMIT Internal Medicine; ATTEND Internal Medicine